=== PATIENT | female | born 1980 | race Two or more races ===

== ENCOUNTER 2025-04-08 12:04 | Emergency (ER) | payer MEDICAID, OTHER ==
[~2025-04-08] VITALS: Ht 170.2 cm; Wt 80.0 kg
[2025-04-08 12:18] VITALS: O2SAT 99
[2025-04-08] MEDS ORDERED: LIDO-53 TP (13:48)
[2025-04-08] MEDS ORDERED: ACET-2708 MT (13:48)
[2025-04-08 13:57] VITALS: BP 109/70; PULSE 96; RESP 17; TEMP 36.9; O2SAT 100
== END 2025-04-08 13:57 | disposition home or self-care (01) ==
LOC: ER 12:04
DX: M25.571 Pain in right ankle and joints of right foot (principal); M25.572 Pain in left ankle and joints of left foot; Z79.899 Other long term (current) drug therapy
CPT/HCPCS: 73600; 99283